=== PATIENT | female | born 1985 | race African-American/Black ===

== ENCOUNTER 2018-11-04 06:59 | Day surgery (SDC) | payer OTHER ==
[~2018-11-04] VITALS: Ht 149.9 cm; Wt 57.2 kg
[~2018-11-04 06:59] MED LIST: BUPIVACAINE MPF 0.5% 30 ML VIAL. ONE
[2018-11-04] MEDS ORDERED: PROCHLORPERAZINE 10 MG/2 ML VIAL. IV PRN (07:00)
[2018-11-04] MEDS ORDERED: IV RINGERS,LACTATED 1000ML 1,000 ML IV SCH (07:00)
[2018-11-04] MEDS ORDERED: HYDROmorphone 2 MG/ML VIAL IV PRN (07:00)
[2018-11-04] MEDS ORDERED: LIDOCAINE 1% PF 2 ML VIAL. ID PRN (07:00)
[2018-11-04] MEDS ORDERED: fentaNYL PF VIAL 100 MCG/2 ML VIAL IV PRN ×2 (07:00)
[2018-11-04] MEDS ORDERED: MORPHINE SULFATE 2 MG/ML VIAL. IV PRN (07:00)
[2018-11-04] MEDS ORDERED: ONDANSETRON PF 4 MG/2 ML VIAL. IV PRN (07:00)
[2018-11-04] MEDS ORDERED: LIDOCAINE 2% PF 5 ML VIAL. ONE (07:11)
[2018-11-04] MEDS ORDERED: ROCURONIUM 50 MG/5 ML VIAL. ONE (07:11)
[2018-11-04] MEDS ORDERED: DEXAMETHASONE SOD PHOS 20 MG/5 ML VIAL. ONE (07:11)
[2018-11-04] MEDS ORDERED: PROPOFOL 20 ML IV ONE (07:11)
[2018-11-04] MEDS ORDERED: ONDANSETRON PF 4 MG/2 ML VIAL. ONE (07:11)
[2018-11-04] MEDS ORDERED: FAMOTIDINE 20 MG/2 ML VIAL ONE (07:39)
[2018-11-04] MEDS ORDERED: MIDAZOLAM HCL/PF 2 MG/2 ML VIAL. ONE (07:39)
[2018-11-04] MEDS ORDERED: fentaNYL PF VIAL 100 MCG/2 ML VIAL ONE (07:39)
[2018-11-04 08:42] LABS: U PREG PATIENT NEGATIVE (NEG)
--- NOTE | 2018-11-04 08:53 | DISCH ---
DISCHARGE INSTRUCTIONS Condition on Discharge Condition on Discharge: Stable Activity After Discharge Activity Instructions for Disc: Activity as tolerated, Avoid exertion Lifting Instructions after Dis: No heavy lifting Driving Instructions after Dis: Do not drive (2-3 days) Diet after Discharge Diet after Discharge: Regular Wound Incision Care Wound/Incision Care: Ice to area for comfort Other wound/incision instructi: December shower Thursday Follow-Up Follow up with: Dagoberto 11/11 DAWIT DONIS MD Nov 04, 2018 08:53
[2018-11-04] MEDS ORDERED: HYDROcodone/APAP 5/325MG 1 TAB TABLET PO ONE (09:45)
[2018-11-04] MEDS ORDERED: HYDR-3164 PO (09:48)
[2018-11-04] MEDS ORDERED: DESFLURANE 16 TO 30 MINUTES. IH ONE (10:17)
[2018-11-04] MEDS ORDERED: KETAMINE HCL IN NACL, ISO-OSM 50 MG/5 ML SYRINGE ONE (10:17)
[2018-11-04] MEDS ORDERED: GLYCOPYRROLATE 1 MG/5 ML VIAL. ONE (10:17)
[2018-11-04] MEDS ORDERED: NEOSTIGMINE 10 MG/10 ML VIAL. ONE (10:17)
[2018-11-04] MEDS ORDERED: diphenhydrAMINE 50 MG/ML VIAL ONE (10:17)
[2018-11-04 12:15] VITALS: BP 109/69
--- NOTE | 2018-11-05 11:39 | PDOC ---
BRIEF OPERATIVE NOTE Date: Nov 04, 2018 Pre-Op Diagnosis umbilical hernia Post-Op Diagnosis same Procedure Performed primary repair Surgeon Dagoberto Anesthesia Type: General Blood Loss 5cc IV Fluid 600cc Specimens Obtained none Findings small defect Complications none Operative Note WK # [id number] DAWIT DONIS MD Nov 05, 2018 11:39
--- NOTE | 2018-11-05 12:35 | OP ---
DATE OF SURGERY: 11/04/2018 PREOPERATIVE DIAGNOSIS: Umbilical hernia. POSTOPERATIVE DIAGNOSIS: Umbilical hernia. PROCEDURE: Primary repair. SURGEON: Zia Donis MD ANESTHESIA: General LMA. BLOOD LOSS: 5 mL. INTRAVENOUS: 600. DESCRIPTION OF PROCEDURE: The patient brought to the operating suite, given a general LMA and the abdomen prepped and draped in usual sterile fashion. An infraumbilical incision was infiltrated with local anesthetic, incised and dissection carried down to the anterior sheath. The hernia was encircled with careful blunt dissection and a Kirk drain placed around it. The umbilical skin was freed from the underlying hernia contents, which were reduced. The small defect was closed with interrupted and inverted [id number] 0 PDS sutures. A second row of 0 Vicryl was placed to complete the repair. The umbilical skin tacked to the underlying repair with 3-0 Vicryl. Skin closed with a subcuticular 4-0 Monocryl and Steri-Strips. Sterile dressing applied. Abdominal binder placed. The patient awakened from her anesthetic and taken to the recovery room in satisfactory condition. ZIA DONIS MD DR: DEANN/smooth JOB#: [id number] / [id number]
== END 2018-11-04 12:35 | disposition home or self-care (01) ==
LOC: SURG 06:59
PROVIDERS: ATTEND Surgery
DX: K42.9 Umbilical hernia without obstruction or gangrene (principal); Z83.3 Family history of diabetes mellitus; Z82.49 Family history of ischemic heart disease and other diseases of the circulatory system; Z72.89 Other problems related to lifestyle; Z79.899 Other long term (current) drug therapy; Z98.890 Other specified postprocedural states
CPT/HCPCS: 49585; 81025; A7015; J0690; J1100; J1200; J2001; J2250; J2405; J2704; J2710; J3010; J3490; J7120